=== PATIENT | female | born 1975 | race Hispanic/Latino ===

== ENCOUNTER 2019-06-15 10:23 | Emergency (ER) | payer MEDICARE ==
[~2019-06-15] VITALS: Ht 165.1 cm; Wt 76.2 kg
--- OUTSIDE RECORDS SUMMARY | 2019-06-15 10:26 | XMS REPORT ---
Author Author [facility] Address Unknown Phone Unavailable Care Team Providers Care Soda Dispenser Name Role Phone Unavailable Unavailable Payers Payer Name Policy Type Policy Number Effective Date Expiration Date Problems This patient has no known problems. Allergies, Adverse Reactions, Alerts Allergy Name Allergy Type Status Severity Reaction(s) Onset Date Inactive Date Treating Clinician Comments No Known Allergies DA Active U 2019-06-15 00:00:00 No Known Contrast Allergies DA Active U 2002-07-17 00:00:00 No Known Drug Allergies DA Active U 2002-07-17 00:00:00 No Known Food Allergies DA Active U 2002-07-17 00:00:00 No Known Other Allergies DA Active U 2002-07-17 00:00:00 Medications This patient has no known medications.
[2019-06-15 10:47] VITALS: BP 136/82
--- NOTE | 2019-06-15 11:46 | Diagnostic Imaging Report ---
EXAMINATION: CHEST 2 VIEWS INDICATION: ^ORDER PLACED BY ^[id number] ^[id number] ^Y COMPARISON: None FINDINGS: PA and lateral views TUBES and LINES: None. LUNGS: Lungs are well inflated. There is no evidence of pneumonia or pulmonary edema. PLEURA: No pleural effusion or pneumothorax. HEART AND MEDIASTINUM: The cardiomediastinal silhouette is unremarkable. BONES AND SOFT TISSUES: No acute osseous lesion. Soft tissues are unremarkable. UPPER ABDOMEN: No free air under the diaphragm. IMPRESSION: No acute thoracic abnormality. Signed by: Dr. Martin Hutton MD on 06/15/2019 11:43 AM
== END 2019-06-15 11:55 | disposition home or self-care (01) ==
LOC: ER 10:23
DX: R05 Cough (principal); J20.9 Acute bronchitis, unspecified
CPT/HCPCS: 71046; 99283